=== PATIENT | male | born 1990 | race African-American/Black ===

== ENCOUNTER 2018-02-24 22:29 | Emergency (ER) | payer OTHER ==
[~2018-02-24] VITALS: Ht 193 cm; Wt 102.1 kg
[2018-02-24 22:55] VITALS: BP_SYST 132
[2018-02-25] MEDS ORDERED: BACITRACIN 1 GM OINT TP ONE (00:15)
[2018-02-25] MEDS ORDERED: LIDOCAINE/EPI 1% 1:100000 20 ML VIAL IJ ONE (00:15)
[2018-02-25] MEDS ORDERED: DIPH-TET-PERTUS Vaccine 0.5 ML VIAL (ADACEL) IM ONE (01:15)
[2018-02-25 01:30] VITALS: BP_SYST 120
== END 2018-02-25 01:30 | disposition home or self-care (01) ==
LOC: SED 22:29
DX: S01.81XA Laceration without foreign body of other part of head, initial encounter (principal); Z88.0 Allergy status to penicillin; W50.0XXA Accidental hit or strike by another person, initial encounter; Y93.89 Activity, other specified; Y92.89 Other specified places as the place of occurrence of the external cause; Y99.8 Other external cause status
CPT/HCPCS: 90715; 99283